=== PATIENT | male | born 1965 | race Caucasian/White ===

== ENCOUNTER 2020-11-15 11:49 | Emergency (ER) | payer SELFPAY ==
[~2020-11-15] VITALS: Ht 175.3 cm; Wt 127.0 kg
[2020-11-15 11:50] VITALS: BP_SYST 182
[2020-11-15] MEDS ORDERED: PERC10 PO (13:13)
[2020-11-15 13:32] VITALS: BP_SYST 182
== END 2020-11-15 13:32 | disposition home or self-care (01) ==
LOC: SED 11:49
DX: S22.31XA Fracture of one rib, right side, initial encounter for closed fracture (principal); V29.9XXA Motorcycle rider (driver) (passenger) injured in unspecified traffic accident, initial encounter; Y93.89 Activity, other specified; Y92.413 State road as the place of occurrence of the external cause; Y99.8 Other external cause status
CPT/HCPCS: 71045; 71100; 72072-TC; 99284